=== PATIENT | male | born 1945 | race Caucasian/White ===

== ENCOUNTER 2025-03-04 09:59 | Day surgery (SDC) | payer MEDICARE, OTHER, SELFPAY ==
[2025-03-02 17:08] VITALS: BMI 23.8
[2025-03-04 11:32] VITALS: BMI 22.4
[2025-03-04 11:36] VITALS: BP 151/74; PULSE 64; RESP 18; TEMP 36.4; O2SAT 98
[2025-03-04] MEDS: LACTATED RINGERS 1000ML 1,000 ML 50 ML IV (11:53)
--- NOTE | 2025-03-04 12:34 | EXP.ANES.CKL ---
[facility] Disclaimer: The information contained in this section may have been updated after the patient was seen, as this information can be updated by other users. Medical History (Updated 03/04/25 @ 11:39 by Emely Vaz RN) COPD (chronic obstructive pulmonary disease) GERD (gastroesophageal reflux disease) HLD (hyperlipidemia) HTN (hypertension) Cholecystectomy planned Liver transplant planned Surgical History History of shoulder surgery History of hip surgery History of heart surgery Family History (Updated 03/04/25 @ 11:39 by Emely Vaz RN) Other Family history of acute heart failure Family history of hypertension Social History (Updated 03/04/25 @ 11:39 by Emely Vaz RN) Smoking Status: Never smoker alcohol intake: never substance use type: denies use current occupational status: retired Travel in the last 8 weeks: Inside the [place] caffeine: No [facility] Anesthesia Checklist Patient Identification Patient Identification: Arm Band Structural Data Admitted From: Home Planned Operative Procedure/s: Colonoscopy Consent for Planned Operative Procedure(s) Verified: Yes Verified Documents: Surgical Consent and History and Physical NPO Status Verified Time NPO: 08:00 (finished prep) Additional verifications Anesthesia Reactions: No Airway Assessment Mallampati Score:: Class I C-Spine Mobility Assessed: Yes TMJ Mobility Assessed: Yes Dentition: Good Dentition Neurological Assessment Level of Consciousness: Awake, Alert and Appropriate Anesthesia Plan Anesthesia Risk discussed: Yes Anesthesia Plan: Verified ASA Class: III Anesthesia Type: MAC
[2025-03-04 12:42] VITALS: O2SAT 94
--- NOTE | 2025-03-04 12:45 | P.HP_ITS ---
History of Present Illness *Admission Date: 03/04/25 *Reason for visit:: Lower abdominal pain, anemia and irregular bowel function *History of present illness: Mrs. Heredia is a 79-year-old female who is here for diagnostic colonoscopy secondary to lower abdominal pain, anemia and bowel irregularity. She will have 3 days of diarrhea and then revert back to regular bowel movements. Her more recent hemoglobin hematocrit were 8.7 and 27. The examination is deemed medically necessary for diagnostic colonoscopy. The patient has been seen, interviewed and examined prior to the procedure by both myself and the anesthesia provider. [facility] Disclaimer: The information contained in this section may have been updated after the patient was seen, as this information can be updated by other users. Medical History (Updated 03/04/25 @ 12:46 by Rehan Duke II, MD) COPD (chronic obstructive pulmonary disease) GERD (gastroesophageal reflux disease) HLD (hyperlipidemia) HTN (hypertension) Cholecystectomy planned Liver transplant planned Surgical History History of shoulder surgery History of hip surgery History of heart surgery Family History (Updated 03/04/25 @ 11:39 by Emely Vaz RN) Other Family history of acute heart failure Family history of hypertension Social History (Updated 03/04/25 @ 12:35 by Bobby Andino CRNA) Smoking Status: Never smoker alcohol intake: never substance use type: denies use current occupational status: retired Travel in the last 8 weeks: Inside the [place] caffeine: No Have you lived/traveled outside [place] in past 30 days?: No Contact w/someone who lives/traveled outside US past 30 days?: No Exposure to someone with infectious disease in past 14 days?: No Do you have a fever (greater than 100.4 F or 38 C)?: No Have you tested positive for COVID-19: No Exposed to someone with COVID-19 in past 14 days?: No Do you have a sore throat?: No Do you have a cough?: No Do you have any weakness?: No Are you experiencing any nausea/vomitting?: No Do you have any diarrhea?: No Are you experiencing any unusual bleeding?: No Do you have any muscle aches/pain?: No Do you have any abdominal pain?: No Are you experiencing loss of taste or smell?: No Review of Systems Review of Systems Review of systems (narrative): Negative *Cardiovascular Comments: Negative *Gastrointestinal Comments: Negative *Genitourinary Comments: Negative *Musculoskeletal Comments: Negative *Neurologic Comments: Negative Meds Home Medications and Allergies Home Medications ?Medication ?Instructions ?Recorded ?Confirmed ?Type sodium,potassium,mag sulfates 17.5 See Rx Instructions PO .COMPLEX 02/17/25 03/04/25 Rx gram-3.13 gram-1.6 gram oral soln #354 mL (Suprep Bowel Prep Kit) Lactobacillus acidophilus 10 10,000 mmu cells PO DAILY 03/04/25 03/04/25 History billion cell capsule (Probiotic) amlodipine 5 mg tablet 5 mg PO DAILY 03/04/25 03/04/25 History aspirin 81 mg capsule 81 mg PO DAILY 03/04/25 03/04/25 History atorvastatin 10 mg tablet 10 mg PO DAILY 03/04/25 03/04/25 History yxlnrrl-gzwcjgdnk-kmuq 333 mg-133 2 tab PO DAILY 03/04/25 03/04/25 History mg-5 mg tablet cholecalciferol (vitamin D3) 25 25 mcg PO DAILY 03/04/25 03/04/25 History mcg (1,000 unit) tablet (Vitamin D3) levothyroxine 112 mcg tablet 112 mcg PO DAILY 03/04/25 03/04/25 History (Synthroid) metoprolol tartrate 25 mg tablet 25 mg PO BID 03/04/25 03/04/25 History multivitamin 1 tab PO DAILY 03/04/25 03/04/25 History mycophenolate mofetil 500 mg tablet 500 mg PO BID 03/04/25 03/04/25 History omeprazole 40 mg capsule,delayed 40 mg PO DAILY 03/04/25 03/04/25 History release prednisone 1 mg tablet 3 mg PO DAILY 03/04/25 03/04/25 History New Prescriptions to Start Prescriptions: Allergies Allergy/AdvReac Type Severity Reaction Status Date / Time cephalexin (From Keflex) Allergy Hives Verified 03/04/25 11:34 levofloxacin (From Levaquin) Allergy Hives Verified 03/04/25 11:34 Penicillins Allergy Hives Verified 03/04/25 11:34 Sulfa (Sulfonamide Allergy Hives Verified 03/04/25 11:34 Antibiotics) Exam Data for Last 24 hours Vital signs and Labs for Last 24 Hours: Temp Pulse Resp BP Pulse Ox O2 Del Method O2 Flow Rate 97.6 F 64 18 151/74 H 98 Nasal Cannula 5 03/04/25 11:36 03/04/25 11:36 03/04/25 11:36 03/04/25 11:36 03/04/25 11:36 03/04/25 12:42 03/04/25 12:42 I & O for Last 24 hours: Intake & Output 03/01/25 03/02/25 03/03/25 03/04/25 23:59 23:59 23:59 23:59 Weight 122 lb 115 lb *Routine HEENT Exam Head: Present normocephalic Eye: Present EOMI and PERRL ENT: Present mucous membranes moist *Routine Neck Exam Neck: Present supple *Routine Respiratory Exam Respiratory: Present CTA bilaterally *Routine Cardiovascular Exam Cardiovascular: Present RRR *Routine Abdominal Exam Abdominal: Present soft and normoactive bowel sounds; Absent tenderness *Routine Rectal Exam Rectal:: deferred *Routine Genitalia Exam Genitalia:: deferred *Routine Extremities Exam Extremities: Absent cyanosis, clubbing or edema *Routine Skin Exam Skin: Present warm; Absent rash *Routine Neurological Exam Neurological: Present alert and oriented X3 Assessment and Plan *Assessment and plan (1) Lower abdominal pain: Status: Acute Category: Medical Code(s): R10.30 - Lower abdominal pain, unspecified (2) Anemia: Status: Acute Category: Medical Code(s): D64.9 - Anemia, unspecified (3) Change in bowel habits: Status: Acute Category: Medical Code(s): R19.4 - Change in bowel habit (4) Diarrhea: Status: Acute Category: Medical Code(s): R19.7 - Diarrhea, unspecified Plan A/P: 1. New onset of lower abdominal pain, change in bowel habits with diarrhea and anemia is the preprocedural diagnosis. The patient will be anesthetized/sedated using MAC sedation. The patient has been seen and examined. Cardiac and lung assessment prior to the examination is stable. Proceed with planned diagnostic colonoscopy.
--- NOTE | 2025-03-04 12:47 | P.PCN_ITS ---
[facility] Procedure Note Date: 03/04/25 Time: 12:58 Procedure Note:: Colonoscopy Procedure Report: Colonoscopy with cold biopsies Endoscopist: Rehan Duke II, MD Referring physician: Bang Mitchell M.D. Date of Procedure: March 04, 2025 Equipment: Olympus 190 variable stiffness pediatric colonoscope Sedation: MAC sedation Indication: Mrs. Heredia is a 79-year-old female who is here for diagnostic colonoscopy secondary to lower abdominal pain which is new. She also has had intermittent diarrhea. She will have diarrhea for 2 or 3 days and then revert to regular. She also has had anemia. She has had long-term anemia with a baseline hemoglobin around 10. Her more recent hemoglobin hematocrit were 8.7 and 27. She reports no melena, hematochezia or bright red blood per rectum. She reports no weight loss or family history of colon cancer. She does have normal levels of B12 and iron according to the patient. The patient did have a colonoscopy 5 years ago at the [facility]. The patient was a former patient of mine and referred for liver transplant evaluation by me to the [facility] (Dr. Ed Breaux and Dr. Yanez) and had OLT/orthotopic liver transplantation in 2013. The patient is doing well and now is only on CellCept. Procedure: Prior to the procedure, a history and physical exam was performed, and patient's medications and allergies were reviewed. The risks, benefits and alternatives of the sedation and procedure were discussed with the patient. All questions were answered and informed consent was obtained. The patient was brought to the procedure room. Patient identification and proposed procedure were verified by the physician and the nurse. The patient was placed in a left lateral decubitus position and the scope was passed under direct vision. Throughout the procedure, the patient's blood pressure, pulse, and oxygen saturations were monitored continuously. The colonoscopy was accomplished without difficulty. The patient tolerated the procedure well. Findings: On digital rectal examination there was normal rectal tone. There were no external hemorrhoids. The colonoscope was introduced through the anal canal to the rectum and advanced to the cecum. The ileocecal valve and appendiceal orifice were identified. The scope was advanced a short distance into the ileum which appeared grossly normal. The scope was then withdrawn into the colon. The cecum, ascending and transverse colon and mucosa were grossly normal. There were scattered diverticuli throughout the descending and sigmoid colon (LEFT colon). Random biopsies were taken from both the right and left colon to rule out microscopic colitis. The rectum itself was normal. Upon retroflexion within the rectum there were grade 1 internal hemorrhoids. The preparation was excellent throughout with [place] Preparation Score of 9. The cecal time was 12 minutes. Impression: 1. Left-sided diverticulosis 2. Grade 1 internal hemorrhoids Plan: I will follow-up the random biopsies to rule out microscopic colitis. 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 We will discuss treatment options. The patient has dropped below her baseline hemoglobin and does have chronic anemia. Her iron and B12 levels were normal. I would recommend hematology evaluation. Certainly CellCept/mycophenolate can affect bone marrow production of RBCs.
[2025-03-04 13:02] VITALS: BP 101/59; PULSE 63; RESP 16; TEMP 36.1; O2SAT 98
[2025-03-04 13:12] VITALS: BP 116/65; PULSE 63; RESP 16; O2SAT 97
[2025-03-04 13:22] VITALS: BP 136/68; PULSE 64; RESP 16; O2SAT 96
[2025-03-04 13:32] VITALS: BP 128/64; PULSE 61; RESP 16; O2SAT 97
== END 2025-03-04 14:05 | disposition home or self-care (01) ==
PROVIDERS: PCP Internal Medicine; Visit Provider Internal Medicine Gastroenterology
PROC: 0DJD8ZZ Inspection of Lower Intestinal Tract, Via Natural or Artificial Opening Endoscopic (ICD-10-PCS; CPT 45378; principal; 2025-03-04 12:00)
DX: K57.30 Diverticulosis of large intestine without perforation or abscess without bleeding (principal); K64.0 First degree hemorrhoids; R10.30 Lower abdominal pain, unspecified; D64.9 Anemia, unspecified; R19.4 Change in bowel habit; R19.7 Diarrhea, unspecified
CPT/HCPCS: 45380; J7120